=== PATIENT | female | born 1975 | race Two or more races ===

== ENCOUNTER → 2022-09-21 | Emergency (ER) | payer OTHER ==
[~2022-09-21] VITALS: Ht 175.3 cm; Wt 104.3 kg
[~2022-09-21] MED LIST: KEPPRA500 MG PO
== END | disposition home or self-care (01) ==
LOC: ER 20:34
DX: R04.0 Epistaxis (principal); R56.9 Unspecified convulsions; G43.809 Other migraine, not intractable, without status migrainosus